=== PATIENT | female | born 1960 | race Caucasian/White ===

== ENCOUNTER → 2019-05-21 | Outpatient (CLI) | payer OTHER ==
--- NOTE | 2019-05-22 08:15 | CT ---
EXAMINATION TYPE: CT iac wo con DATE OF EXAM: 05/21/2019 COMPARISON: None HISTORY: hearing loss and ringing to right ear, otalgia CT DLP: 150 mGycm Automated exposure control for dose reduction was used. CONTRAST: None TECHNIQUE: Axial images 1 mm thick sections. Reconstructed images in the coronal plane. FINDINGS: Dental amalgam scatter artifact is present at the level the mandible. Post thickening is present thro ugh the maxillary sinuses. Some mild mucosal thickening is within the ethmoid air cells. Left septal deviation is noted. Mastoid air cells are clear. Ostiomeatal units are patent. External auditory canals are clear. Middle ears are normal. Incus and malleus have normal orientation .. Internal auditory canals appear normal without expansion or erosion. Temporomandibular junctions a ppear normal. Semicircular canals are normal. Cochlea are normal. Torus tubarius and fossa Rosenmuller are unremarkable. Prevertebral space is normal. No suspicious masses within the cerebellar pontine angles are evident. IMPRESSION: 1. NORMAL INTERNAL AUDITORY CANALS. NOTE THIS IS SOMEWHAT LIMITED GIVEN LACK OF INTRAVENOUS CONTRAST. 2. MILD MUCOSAL THICKENING WITHIN MAXILLARY AND ETHMOID AIR CELLS.
== END | disposition home or self-care (01) ==
LOC: RADCTMAIN 16:31
PROVIDERS: ATTEND Family Medicine
DX: H92.01 Otalgia, right ear (principal)
CPT/HCPCS: 70480

== ENCOUNTER → 2019-08-05 | Outpatient (CLI) | payer OTHER ==
--- NOTE | 2019-08-05 13:59 | CT ---
EXAMINATION TYPE: CT sinus wo con DATE OF EXAM: 08/05/2019 COMPARISON: None HISTORY: Chronic sinusitis CT DLP: [address] of the paranasal sinuses was performed in the axial and coronal planes. Bone and soft tissue settings are submitted. The paranasal sinuses demonstrate normal aeration and development. The paranasal sinuses are free of mucosal thickening or air fluid level. Probable polyp or mucous ret ention cyst right maxillary sinus. The osteal meatal units are patent bilaterally. The nasal septum is midline. No bony destructive changes are seen within the field of view. IMPRESSION: Probable polyp or mucous retention cyst right maxillary sinus.
== END | disposition home or self-care (01) ==
LOC: RADCTMAIN 13:18
PROVIDERS: ATTEND Otolaryngology
DX: J32.9 Chronic sinusitis, unspecified (principal)
CPT/HCPCS: 70486

== ENCOUNTER 2019-11-06 10:51 | Day surgery (SDC) | payer OTHER ==
[2019-11-05 10:46] VITALS: BMI 34.0
[~2019-11-06 10:51] MED LIST: ALBUTEROL NEB (CONC) 2.5 MG/0.5 ML INHALATION ONE; LACTATED RINGERS 1,000 ML IV SCH; LIDOCAINE 2% (PF) 20 MG/ML 5 ML VIAL INHALATION ONE; LIDOCAINE VISCOUS 300 MG/15 ML CUP MUCOUS MEM ONE; SODIUM CHLORIDE 0.9% 1,000 ML IV SCH
[2019-11-06] MEDS ORDERED: PROPOFOL 10 MG/ML 20 ML VIAL IV ONE (12:20)
[2019-11-06] MEDS ORDERED: SUCCINYLCHOLINE CHLORIDE 100 MG/5 ML SYR IV ONE (12:20)
[2019-11-06] MEDS ORDERED: fentaNYL (PF) 50 MCG/ML 2 ML AMP ONE (12:20)
[2019-11-06] MEDS ORDERED: MIDAZOLAM 2 MG/2 ML VIAL ONE (12:20)
[2019-11-06 13:09] VITALS: TEMP 97
--- NOTE | 2019-11-06 13:29 | P.PCN ---
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 Procedure(s) Performed: Flexible bronchoscopy, endobronchial biopsies, transbronchial needle aspirate of paratracheal lymph nodes station 7R, bronchioloalveolar lavage of the right upper lobe Anesthesia: NEMESIOA Surgeon: Tiffanie Alberts Estimated Blood Loss (ml): 5 Pathology: other Condition: stable Disposition: same day Operative Findings: This procedure was done in the endoscopy suite. Covered 19 testing was obtained and negativity was confirmed. Following that, the patient was brought into the endoscopy suite and she was intubated and placed on a mechanical ventilator. Intubation process was done by anesthesia. The patient was intubated by #8 orotracheal tube and the procedure was done while the patient was adequately oxygenated and ventilated. An adapter was attached and orotracheal tube and following that procedure was initiated. The flexible bronchoscope was easily passed with orotracheal tube and was advanced in the distal trachea. The tip of the orotracheal tube was seen around 2 cm above the renetta. Distal trachea and main renetta was within normal limits. A quick examination of the left side was done including the left mainstem bron chus, left upper lobe bronchus, left lower lobe bronchus along today segments and subsegments. These airways were patent. There was some bronchomalacia noted. There was no evidence of any endobronchial tumors or lesions on the left. Following that, the bronchoscope was moved to the right. The origin of the right mainstem bronchus was identified it was slightly narrowed. As the right mainstem bronchus was further inspected, it was gradually getting narrowed and at the level of the secondary renetta between the bronchus intermedius and the right upper lobe, the caliber of the right mainstem bronchus was reduced by about 50% of his normal caliber. there was mass effect laterally on the right mainstem bronchus. There was also some mass effect in the distal trachea on the right. At this point, using and I think it cytology needle and 21-gauge histology needle, transbronchial needle aspirate of the right paratracheal lymph node was done station 7R. the adequacy of the samples was confirmed by anesthesia the bedside. Following that, the bronchoscope was moved to the right upper lobe bronchus. Under direct visualization, endobronchial biopsies of the right upper lobe tumor was obtained. Note that this tumor was fungating and the right upper lobe bronchus and was causing complete occlusion of the right upper lobe bronchus. While doing the endobronchial biopsies, the tumor characteristics was noted to be quite necrotic. There was significant tissue breakdown where the tumor was broken into different smaller portions. Ultimately, there was some patency of the right upper lobe bronchus was achieved. The surface of the tumor was quite friable and bleeding. Total amount of bleed estimated was less than 5 ML's. A bronchioloalveolar lavage of the right upper lobe was done with a total of 60 of fluid was infused and 20 mL of bloody aspirate was obtained. This also helped with the control of bleeding. The area was inspected. The bleeding was controlled without any intervention. The surface of the tumor clotted itself. The bronchoscope was used to clean the rest of the blood and secretions within the airway including the ones in the right lower lobe bronchitis in the right middle lobe bronchus. There was no further inspected. At the completion of the procedure, the bronchoscope was removed and the patient was extubated and chest with recovery in stable condition.
[2019-11-06 13:55] VITALS: BP 122/60; PULSE 71; RESP 18
== END 2019-11-06 14:13 | disposition home or self-care (01) ==
LOC: ORWHC2ENDO 10:51
PROVIDERS: ATTEND Internal Medicine Critical Care Medicine
DX: C34.11 Malignant neoplasm of upper lobe, right bronchus or lung (principal); J98.09 Other diseases of bronchus, not elsewhere classified; J47.9 Bronchiectasis, uncomplicated; F41.1 Generalized anxiety disorder; I10 Essential (primary) hypertension; Z11.59 Encounter for screening for other viral diseases; Z80.8 Family history of malignant neoplasm of other organs or systems; Z81.8 Family history of other mental and behavioral disorders; Z87.891 Personal history of nicotine dependence; E78.5 Hyperlipidemia, unspecified; Z79.899 Other long term (current) drug therapy; Z88.8 Allergy status to other drugs, medicaments and biological substances
CPT/HCPCS: 94640; 88108; 88305; 88173; 88342; 88341; 87635; 31629; 31625; 31624; J2250; J3010; J0330; J2704; J2001; 31633